=== PATIENT | female | born 1960 | race African-American/Black ===

== ENCOUNTER 2022-01-26 11:41 | Inpatient (IN) | payer OTHER ==
[2022-01-26] MEDS ORDERED: ONDANSETRON *ODT* 4 MG TABLET SL PRN (11:59)
[2022-01-26] MEDS ORDERED: MENTHOL/PHENOL 1 EACH UD MM PRN (11:59)
[2022-01-26] MEDS ORDERED: ACETAMINOPHEN 325 MG TABLET (FP) PO PRN ×2 (11:59)
[2022-01-26] MEDS ORDERED: NICOTINE 10 MG CARTRIDGE (INHALER) IH PRN (11:59)
[2022-01-26] MEDS ORDERED: MAG HYDROX/AL HYDROX/SIMETH 30 ML UNIT-DOSE CUP PO PRN (11:59)
[2022-01-26] MEDS ORDERED: LOPERAMIDE HCL 2 MG CAPSULE PO PRN (11:59)
[2022-01-26] MEDS ORDERED: MAGNESIUM HYDROX 2400MG/30ML ORAL SUSPENSION 30 ML CUP PO PRN (11:59)
[2022-01-26] MEDS ORDERED: BISMUTH SUBSALICYLATE 524 MG/30 ML PO PRN (11:59)
[2022-01-26] MEDS ORDERED: MAGNESIUM CITRATE 300 ML BOTTLE PO PRN (11:59)
[2022-01-26] MEDS ORDERED: LORazepam 1 MG TABLET PO PRN (11:59)
[2022-01-26] MEDS ORDERED: IBUPROFEN 400 MG TABLET (FP) PO PRN (11:59)
[2022-01-26 12:38] VITALS: BMI 18.9
[2022-01-26 15:33] LABS: HEMATOCRIT 39.1 % (32.4-45.2); HEMOGLOBIN 12.7 GM/dL (10.7-15.3); MCH 28.2 pg (25.7-33.7); MCHC 32.5 g/dl (32.0-36.0); MEAN CELL VOLUME 86.7 fl (80-96); MEAN PLT VOLUME 6.9 fl (7.5-11.1); PLATELET COUNT 393 10^3/uL (134-434); RBC 4.51 M/mm3 (3.60-5.2); RDW 16.6 % (11.6-15.6); WHITE BLOOD COUNT 4.1 K/mm3 (4.0-10.0)
[2022-01-26 15:37] LABS: CALCIUM 8.9 mg/dL (8.5-10.1)
[2022-01-26 15:39] LABS: ALBUMIN 3.2 g/dl (3.4-5.0); BLOOD UREA NITROGEN 23.4 mg/dL (7-18)
[2022-01-26 15:41] LABS: CREATININE 1.4 mg/dL (0.55-1.3)
[2022-01-26 15:42] LABS: BILIRUBIN,TOTAL 0.3 mg/dL (0.2-1)
[2022-01-26] MEDS ORDERED: ALBUTEROL SO4 HFA INHALER IH PRN (18:12)
[2022-01-26] MEDS: NICOTINE 7 MG/24 HOURS TOPICAL PATCH TD SCH (21:41)
[2022-01-26] MEDS: hydrOXYzine PAMOATE 25 MG CAPSULE (FP) PO SCH ×3 (21:41→23:31)
[2022-01-26] MEDS: LORazepam 2 MG TABLET PO SCH ×2 (21:41→23:32)
[2022-01-26] MEDS: PRENATAL VITAMINS W/ FOLIC ACID TABLET (FP) PO SCH (21:41)
[2022-01-26] MEDS: SULFAMETHOXAZOLE/TRIMETHOPRIM 800MG/160MG D.S. TABLET PO SCH (23:31)
[2022-01-26] MEDS: THIAMINE HCL 100 MG TABLET (FP) PO SCH (23:31)
[2022-01-26] MEDS: ATORVASTATIN CA 20 MG TABLET (FP) PO SCH (23:31)
[2022-01-26] MEDS: MELATONIN 5 MG TABLETS PO SCH (23:32)
[2022-01-27 00:58] LABS: EPI CELLS >36 /uL (0-25.1); HYALINE CASTS 2 /uL (0-3.1); PH,URINE 5.5 (5.0-8.0); URINE APPEARANCE CLEAR; URINE BACTERIA 496 /uL (0-1359); URINE BILIRUBIN NEGATIVE (NEGATIVE); URINE COLOR YELLOW; URINE GLUCOSE (UA) NEGATIVE (NEGATIVE); URINE KETONE NEGATIVE (NEGATIVE); URINE LEUK ESTERASE TRACE (NEGATIVE); URINE NITRITE NEGATIVE (NEGATIVE); URINE PROTEIN NEGATIVE (NEGATIVE); URINE RBC 7 /uL (0-23.9); URINE WBC 26 /uL (0-25.8)
[2022-01-27] MEDS: LORazepam 2 MG TABLET PO SCH ×4 (06:24→22:57)
[2022-01-27] MEDS: hydrOXYzine PAMOATE 25 MG CAPSULE (FP) PO SCH ×5 (06:25→22:59)
[2022-01-27] MEDS: SULFAMETHOXAZOLE/TRIMETHOPRIM 800MG/160MG D.S. TABLET PO SCH (10:46)
[2022-01-27] MEDS: PRENATAL VITAMINS W/ FOLIC ACID TABLET (FP) PO SCH (10:46)
[2022-01-27] MEDS: NICOTINE 7 MG/24 HOURS TOPICAL PATCH TD SCH (10:49)
[2022-01-27] MEDS: TIOTROPIUM BROMIDE 2.5 MCG (SPIRIVA) RESPIMAT INHALER IH SCH (14:56)
[2022-01-27] MEDS: ATORVASTATIN CA 20 MG TABLET (FP) PO SCH (22:57)
[2022-01-27] MEDS: THIAMINE HCL 100 MG TABLET (FP) PO SCH (22:58)
[2022-01-27] MEDS: MELATONIN 5 MG TABLETS PO SCH (22:59)
[2022-01-28] MEDS: LORazepam 1 MG TABLET PO SCH ×4 (07:22→23:07)
[2022-01-28] MEDS: hydrOXYzine PAMOATE 25 MG CAPSULE (FP) PO SCH ×5 (07:23→23:08)
[2022-01-28] MEDS: PRENATAL VITAMINS W/ FOLIC ACID TABLET (FP) PO SCH (10:40)
[2022-01-28] MEDS: SULFAMETHOXAZOLE/TRIMETHOPRIM 800MG/160MG D.S. TABLET PO SCH (10:40)
[2022-01-28] MEDS: NICOTINE 7 MG/24 HOURS TOPICAL PATCH TD SCH (10:41)
[2022-01-28] MEDS: TIOTROPIUM BROMIDE 2.5 MCG (SPIRIVA) RESPIMAT INHALER IH SCH (11:01)
[2022-01-28] MEDS: ATORVASTATIN CA 20 MG TABLET (FP) PO SCH (23:07)
[2022-01-28] MEDS: MELATONIN 5 MG TABLETS PO SCH (23:08)
[2022-01-28] MEDS: METHOCARBAMOL 500 MG TABLET PO PRN (23:09)
[2022-01-28] MEDS: THIAMINE HCL 100 MG TABLET (FP) PO SCH (23:15)
[2022-01-29] MEDS ORDERED: LORazepam 0.5 MG TABLET PO PRN
[2022-01-29 00:07] LABS: SARS-CoV-2 NAA Not Detected (Not Detected)
[2022-01-29] MEDS: LORazepam 0.5 MG TABLET PO SCH ×2 (06:23→11:48)
[2022-01-29] MEDS: hydrOXYzine PAMOATE 25 MG CAPSULE (FP) PO SCH ×3 (06:24→15:12)
[2022-01-29] MEDS: TIOTROPIUM BROMIDE 2.5 MCG (SPIRIVA) RESPIMAT INHALER IH SCH (11:00)
[2022-01-29] MEDS: SULFAMETHOXAZOLE/TRIMETHOPRIM 800MG/160MG D.S. TABLET PO SCH (11:00)
[2022-01-29] MEDS: PRENATAL VITAMINS W/ FOLIC ACID TABLET (FP) PO SCH (11:00)
[2022-01-29] MEDS: NICOTINE 7 MG/24 HOURS TOPICAL PATCH TD SCH (11:00)
[2022-01-29] MEDS: METHOCARBAMOL 500 MG TABLET PO PRN (11:02)
[2022-01-29 11:55] LABS: CALCIUM 8.4 mg/dL (8.5-10.1)
[2022-01-29 11:56] LABS: BLOOD UREA NITROGEN 13.8 mg/dL (7-18)
[2022-01-29 11:57] LABS: BASO % 0.7 % (0-2.0); EOS % 1.6 % (0-4.5); HEMATOCRIT 36.5 % (32.4-45.2); HEMOGLOBIN 11.5 GM/dL (10.7-15.3); MCH 27.6 pg (25.7-33.7); MCHC 31.6 g/dl (32.0-36.0); MEAN CELL VOLUME 87.5 fl (80-96); MONO % 16.1 % (3.8-10.2); NEUT % 45.6 % (42.8-82.8); PLATELET COUNT 314 10^3/uL (134-434); RBC 4.17 M/mm3 (3.60-5.2); RDW 17.6 % (11.6-15.6); WHITE BLOOD COUNT 3.2 K/mm3 (4.0-10.0)
[2022-01-29 11:59] LABS: CREATININE 0.9 mg/dL (0.55-1.3)
[2022-01-29 17:44] VITALS: BP 109/57; PULSE 90; TEMP 98.4
[2022-01-30] MEDS ORDERED: LORazepam 0.5 MG TABLET PO ONE (05:00)
== END 2022-01-29 17:40 | disposition home or self-care (01) | DRG 774 ==
LOC: YASAS 11:41 → Y3N 20:34
PROVIDERS: ADMIT Allergy & Immunology; ATTEND Allergy & Immunology
PROC: HZ2ZZZZ Detoxification Services for Substance Abuse Treatment (ICD-10-PCS; principal; 2022-01-26)
DX: F10.230 Alcohol dependence with withdrawal, uncomplicated (principal); F14.20 Cocaine dependence, uncomplicated; F17.210 Nicotine dependence, cigarettes, uncomplicated; F19.24 Other psychoactive substance dependence with psychoactive substance-induced mood disorder; F41.9 Anxiety disorder, unspecified; F32.A Depression, unspecified; Z21 Asymptomatic human immunodeficiency virus [HIV] infection status; N17.9 Acute kidney failure, unspecified; N39.0 Urinary tract infection, site not specified; I10 Essential (primary) hypertension; J44.9 Chronic obstructive pulmonary disease, unspecified; A53.0 Latent syphilis, unspecified as early or late; Z86.19 Personal history of other infectious and parasitic diseases; Z88.0 Allergy status to penicillin; Z59.00 Homelessness unspecified; Z56.0 Unemployment, unspecified
CPT/HCPCS: 36415; 80048; 80053; 81003; 85025; 85027; 86593; 86780; 87811; C9803-CS; U0003; U0005

== ENCOUNTER 2022-03-26 09:32 | Inpatient (IN) | payer OTHER ==
[2022-03-26 10:58] VITALS: BMI 18.9
[2022-03-26] MEDS ORDERED: IBUPROFEN 400 MG TABLET (FP) PO PRN (12:16)
[2022-03-26] MEDS ORDERED: LOPERAMIDE HCL 2 MG CAPSULE PO PRN (12:16)
[2022-03-26] MEDS ORDERED: MAG HYDROX/AL HYDROX/SIMETH 30 ML UNIT-DOSE CUP PO PRN (12:16)
[2022-03-26] MEDS ORDERED: MAGNESIUM CITRATE 300 ML BOTTLE PO PRN (12:16)
[2022-03-26] MEDS ORDERED: DICYCLOMINE HCL 10 MG CAPSULE PO PRN (12:16)
[2022-03-26] MEDS ORDERED: METHOCARBAMOL 500 MG TABLET PO PRN (12:16)
[2022-03-26] MEDS ORDERED: MAGNESIUM HYDROX 2400MG/30ML ORAL SUSPENSION 30 ML CUP PO PRN (12:16)
[2022-03-26] MEDS ORDERED: BISMUTH SUBSALICYLATE 524 MG/30 ML PO PRN (12:16)
[2022-03-26] MEDS ORDERED: ONDANSETRON *ODT* 4 MG TABLET SL PRN (12:16)
[2022-03-26] MEDS ORDERED: chlordiazePOXIDE HCL 25 MG CAPSULE PO PRN (12:16)
[2022-03-26] MEDS ORDERED: NICOTINE 10 MG CARTRIDGE (INHALER) IH PRN (12:16)
[2022-03-26] MEDS ORDERED: BENZOCAINE/MENTHOL (CHLORASEPTIC ) LOZENGE MM PRN (12:16)
[2022-03-26] MEDS ORDERED: ACETAMINOPHEN 325 MG TABLET (FP) PO PRN ×2 (12:16)
[2022-03-26] MEDS: hydrOXYzine PAMOATE 25 MG CAPSULE (FP) PO SCH ×3 (14:01→22:26)
[2022-03-26] MEDS ORDERED: ALBUTEROL SO4 HFA INHALER IH PRN (16:10)
[2022-03-26] MEDS: predniSONE 20 MG TABLET (UD) PO SCH (17:38)
[2022-03-26] MEDS: chlordiazePOXIDE HCL 25 MG CAPSULE PO SCH ×2 (17:38→22:26)
[2022-03-26] MEDS: MELATONIN 5 MG TABLETS PO SCH (22:26)
[2022-03-26] MEDS: THIAMINE HCL 100 MG TABLET (FP) PO SCH (22:26)
[2022-03-26] MEDS: CEFPODOXIME PROXETIL 200 MG TABLET [NF] PO SCH (22:26)
[2022-03-27] MEDS: chlordiazePOXIDE HCL 25 MG CAPSULE PO SCH ×4 (06:17→22:55)
[2022-03-27] MEDS: hydrOXYzine PAMOATE 25 MG CAPSULE (FP) PO SCH ×5 (06:18→22:30)
[2022-03-27] MEDS: CEFPODOXIME PROXETIL 200 MG TABLET [NF] PO SCH ×2 (10:16→22:29)
[2022-03-27] MEDS: predniSONE 20 MG TABLET (UD) PO SCH (10:16)
[2022-03-27] MEDS: PRENATAL VITAMINS W/ FOLIC ACID TABLET (FP) PO SCH (10:21)
[2022-03-27 10:32] LABS: HEMATOCRIT 40.9 % (32.4-45.2); HEMOGLOBIN 13.2 GM/dL (10.7-15.3); MCH 27.7 pg (25.7-33.7); MCHC 32.4 g/dl (32.0-36.0); MEAN CELL VOLUME 85.6 fl (80-96); MEAN PLT VOLUME 7.2 fl (7.5-11.1); PLATELET COUNT 362 10^3/uL (134-434); RBC 4.78 M/mm3 (3.60-5.2); RDW 21.2 % (11.6-15.6); WHITE BLOOD COUNT 6.4 K/mm3 (4.0-10.0)
[2022-03-27 11:10] LABS: CALCIUM 9.1 mg/dL (8.5-10.1)
[2022-03-27 11:11] LABS: BLOOD UREA NITROGEN 27.8 mg/dL (7-18)
[2022-03-27 11:14] LABS: CREATININE 0.9 mg/dL (0.55-1.3)
[2022-03-27 11:15] LABS: BILIRUBIN,TOTAL 0.3 mg/dL (0.2-1)
[2022-03-27 11:16] LABS: TOT PROT 6.6 g/dl (6.4-8.2)
[2022-03-27 14:28] LABS: URINE APPEARANCE CLEAR; URINE BILIRUBIN NEGATIVE (NEGATIVE); URINE COLOR YELLOW; URINE GLUCOSE (UA) NEGATIVE (NEGATIVE); URINE KETONE NEGATIVE (NEGATIVE); URINE LEUK ESTERASE NEGATIVE (NEGATIVE); URINE NITRITE NEGATIVE (NEGATIVE); URINE PROTEIN NEGATIVE (NEGATIVE); URINE UROBILINOGEN 0.2 mg/dL (0.2-1.0)
[2022-03-27] MEDS: APIXABAN 5 MG TABLET PO SCH (15:13)
[2022-03-27] MEDS: LOSARTAN POTASSIUM 25 MG TABLET PO SCH (15:14)
[2022-03-27] MEDS: DOXYCYCLINE HYCLATE 100 MG TABLET PO SCH (15:14)
[2022-03-27] MEDS: DARUNAVIR/COB/EMTRI/TENOF (SYMTUZA) TABLET (NF) PO SCH (15:14)
[2022-03-27] MEDS: ASPIRIN 81 MG CHEWABLE TABLETS PO SCH (15:14)
[2022-03-27] MEDS: THIAMINE HCL 100 MG TABLET (FP) PO SCH (22:29)
[2022-03-27] MEDS: MELATONIN 5 MG TABLETS PO SCH (22:32)
[2022-03-28] MEDS: chlordiazePOXIDE HCL 25 MG CAPSULE PO SCH ×4 (06:09→22:59)
[2022-03-28] MEDS: hydrOXYzine PAMOATE 25 MG CAPSULE (FP) PO SCH ×5 (06:09→22:58)
[2022-03-28] MEDS: CEFPODOXIME PROXETIL 200 MG TABLET [NF] PO SCH ×2 (10:27→22:58)
[2022-03-28] MEDS: DARUNAVIR/COB/EMTRI/TENOF (SYMTUZA) TABLET (NF) PO SCH (10:27)
[2022-03-28] MEDS: ASPIRIN 81 MG CHEWABLE TABLETS PO SCH (10:27)
[2022-03-28] MEDS: DOXYCYCLINE HYCLATE 100 MG TABLET PO SCH (10:29)
[2022-03-28] MEDS: PRENATAL VITAMINS W/ FOLIC ACID TABLET (FP) PO SCH (10:29)
[2022-03-28] MEDS: APIXABAN 5 MG TABLET PO SCH (10:29)
[2022-03-28] MEDS: predniSONE 20 MG TABLET (UD) PO SCH (10:29)
[2022-03-28] MEDS: LOSARTAN POTASSIUM 25 MG TABLET PO SCH (10:29)
[2022-03-28 14:12] LABS: SARS-CoV-2 NAA Not Detected (Not Detected)
[2022-03-28] MEDS: THIAMINE HCL 100 MG TABLET (FP) PO SCH (22:58)
[2022-03-28] MEDS: MELATONIN 5 MG TABLETS PO SCH (23:00)
[2022-03-29] MEDS ORDERED: chlordiazePOXIDE HCL 10 MG CAPSULE PO PRN
[2022-03-29] MEDS: chlordiazePOXIDE HCL 10 MG CAPSULE PO SCH ×2 (05:49→10:07)
[2022-03-29] MEDS: hydrOXYzine PAMOATE 25 MG CAPSULE (FP) PO SCH ×2 (05:50→10:07)
[2022-03-29 08:44] VITALS: BP 114/66; PULSE 89; TEMP 97.9
[2022-03-29] MEDS: LOSARTAN POTASSIUM 25 MG TABLET PO SCH (10:04)
[2022-03-29] MEDS: predniSONE 20 MG TABLET (UD) PO SCH (10:04)
[2022-03-29] MEDS: ASPIRIN 81 MG CHEWABLE TABLETS PO SCH (10:04)
[2022-03-29] MEDS: APIXABAN 5 MG TABLET PO SCH (10:05)
[2022-03-29] MEDS: DOXYCYCLINE HYCLATE 100 MG TABLET PO SCH (10:05)
[2022-03-29] MEDS: CEFPODOXIME PROXETIL 200 MG TABLET [NF] PO SCH (10:05)
[2022-03-29] MEDS: DARUNAVIR/COB/EMTRI/TENOF (SYMTUZA) TABLET (NF) PO SCH (10:05)
[2022-03-29] MEDS: PRENATAL VITAMINS W/ FOLIC ACID TABLET (FP) PO SCH (10:06)
[2022-03-30] MEDS ORDERED: chlordiazePOXIDE HCL 10 MG CAPSULE PO SCH (05:00)
[2022-03-31] MEDS ORDERED: chlordiazePOXIDE HCL 10 MG CAPSULE PO ONE (05:00)
== END 2022-03-29 10:10 | disposition left against medical advice (07) | DRG 770 ==
LOC: YASAS 09:32 → Y3N 13:22
PROVIDERS: ADMIT Surgery; ATTEND Surgery
PROC: HZ2ZZZZ Detoxification Services for Substance Abuse Treatment (ICD-10-PCS; principal; 2022-03-26)
DX: F10.230 Alcohol dependence with withdrawal, uncomplicated (principal); F14.20 Cocaine dependence, uncomplicated; F17.210 Nicotine dependence, cigarettes, uncomplicated; F19.280 Other psychoactive substance dependence with psychoactive substance-induced anxiety disorder; F19.24 Other psychoactive substance dependence with psychoactive substance-induced mood disorder; F41.8 Other specified anxiety disorders; F32.A Depression, unspecified; Z21 Asymptomatic human immunodeficiency virus [HIV] infection status; G47.00 Insomnia, unspecified; J44.9 Chronic obstructive pulmonary disease, unspecified; R63.4 Abnormal weight loss; Z68.1 Body mass index [BMI] 19.9 or less, adult; Z87.440 Personal history of urinary (tract) infections; Z87.01 Personal history of pneumonia (recurrent); Z88.0 Allergy status to penicillin
CPT/HCPCS: 36415; 80053; 81003; 85027; 86593; 86780; 87811; C9803-CS; Q0162; U0003; U0005

== ENCOUNTER 2022-05-22 15:39 | Inpatient (IN) | payer OTHER ==
[2022-05-22 17:16] VITALS: BMI 18.6
[2022-05-22] MEDS ORDERED: NICOTINE 10 MG CARTRIDGE (INHALER) IH PRN (17:51)
[2022-05-22] MEDS ORDERED: MAG HYDROX/AL HYDROX/SIMETH 30 ML UNIT-DOSE CUP PO PRN (17:51)
[2022-05-22] MEDS ORDERED: MAGNESIUM HYDROX 2400MG/30ML ORAL SUSPENSION 30 ML CUP PO PRN (17:51)
[2022-05-22] MEDS ORDERED: LOPERAMIDE HCL 2 MG CAPSULE PO PRN (17:51)
[2022-05-22] MEDS ORDERED: P-EPHED 60MG/TRIPROLIDI 2.5MG TABLET PO PRN (17:51)
[2022-05-22] MEDS ORDERED: hydrOXYzine PAMOATE 25 MG CAPSULE (FP) PO PRN (17:51)
[2022-05-22] MEDS ORDERED: MAGNESIUM CITRATE 300 ML BOTTLE PO PRN (17:51)
[2022-05-22] MEDS ORDERED: ALBUTEROL SO4 HFA INHALER IH PRN (17:59)
[2022-05-22] MEDS ORDERED: METHOCARBAMOL 500 MG TABLET PO PRN (18:02)
[2022-05-22] MEDS ORDERED: MELATONIN 5 MG TABLETS PO SCH (22:00)
[2022-05-22] MEDS: APIXABAN 5 MG TABLET PO SCH (23:06)
[2022-05-22] MEDS: BUDESONIDE/FORMETEROL FUMARATE 160/4.5 mcg INHALER IH SCH (23:06)
[2022-05-22] MEDS: THIAMINE HCL 100 MG TABLET (FP) PO SCH (23:07)
[2022-05-23] MEDS: ACETAMINOPHEN 325 MG TABLET (FP) PO PRN ×2 (07:42→22:10)
[2022-05-23] MEDS ORDERED: COLLOIDAL OATMEAL 1 BAR EACH TP PRN (10:17)
[2022-05-23] MEDS: PRENATAL VITAMINS W/ FOLIC ACID TABLET (FP) PO SCH (11:03)
[2022-05-23] MEDS: LOSARTAN POTASSIUM 25 MG TABLET PO SCH (11:04)
[2022-05-23] MEDS: APIXABAN 5 MG TABLET PO SCH (11:04)
[2022-05-23] MEDS: predniSONE 20 MG TABLET (UD) PO SCH (11:04)
[2022-05-23] MEDS: BUDESONIDE/FORMETEROL FUMARATE 160/4.5 mcg INHALER IH SCH ×2 (11:05→22:05)
[2022-05-23] MEDS: NICOTINE 7 MG/24 HOURS TOPICAL PATCH TD SCH (11:05)
[2022-05-23] MEDS: guaiFENesin 200 MG/10 ML 10 ML UNIT-DOSE CUPS PO PRN (11:30)
[2022-05-23] MEDS: TOLNAFTATE 1% CREAM 15 GM TUBE TP SCH ×2 (11:39→22:06)
[2022-05-23] MEDS ORDERED: ARIPiprazole 2 MG TABLET PO ONE (11:52)
[2022-05-23 12:36] LABS: URINE APPEARANCE CLEAR; URINE BILIRUBIN NEGATIVE (NEGATIVE); URINE COLOR YELLOW; URINE GLUCOSE (UA) NEGATIVE (NEGATIVE); URINE KETONE NEGATIVE (NEGATIVE); URINE LEUK ESTERASE NEGATIVE (NEGATIVE); URINE NITRITE NEGATIVE (NEGATIVE); URINE PROTEIN NEGATIVE (NEGATIVE)
[2022-05-23] MEDS: PATIENT'S OWN MEDICATION (NON-FORMULARY) (Darunavir/Cob/Emtri/Tenof Alaf 1 EACH Tablet) PO SCH (14:43)
[2022-05-23] MEDS: APIXABAN 5 MG PO SCH (22:04)
[2022-05-23] MEDS: MELATONIN 5 MG TABLETS PO SCH (22:05)
[2022-05-23] MEDS: THIAMINE HCL 100 MG TABLET (FP) PO SCH (22:06)
[2022-05-24] MEDS: PATIENT'S OWN MEDICATION (NON-FORMULARY) (Darunavir/Cob/Emtri/Tenof Alaf 1 EACH Tablet) PO SCH (07:01)
[2022-05-24] MEDS: ACETAMINOPHEN 325 MG TABLET (FP) PO PRN (07:25)
[2022-05-24] MEDS: APIXABAN 5 MG PO SCH ×2 (10:30→21:21)
[2022-05-24] MEDS: PRENATAL VITAMINS W/ FOLIC ACID TABLET (FP) PO SCH (10:30)
[2022-05-24] MEDS: ARIPiprazole 2 MG TABLET PO SCH (10:31)
[2022-05-24] MEDS: LOSARTAN POTASSIUM 25 MG TABLET PO SCH (10:31)
[2022-05-24] MEDS: predniSONE 20 MG TABLET (UD) PO SCH (10:31)
[2022-05-24] MEDS: BUDESONIDE/FORMETEROL FUMARATE 160/4.5 mcg INHALER IH SCH ×2 (10:32→21:21)
[2022-05-24] MEDS: NICOTINE 7 MG/24 HOURS TOPICAL PATCH TD SCH (10:32)
[2022-05-24] MEDS: TOLNAFTATE 1% CREAM 15 GM TUBE TP SCH ×2 (10:34→21:21)
[2022-05-24 11:50] LABS: HEMOGLOBIN 13.1 GM/dL (10.7-15.3); MCH 28.7 pg (25.7-33.7); MCHC 32.6 g/dl (32.0-36.0); MEAN CELL VOLUME 87.9 fl (80-96); MEAN PLT VOLUME 7.1 fl (7.5-11.1); PLATELET COUNT 361 10^3/uL (134-434); RBC 4.55 M/mm3 (3.60-5.2); WHITE BLOOD COUNT 5.4 K/mm3 (4.0-10.0)
[2022-05-24 12:58] LABS: ALBUMIN 2.9 g/dl (3.4-5.0); CREATININE 0.9 mg/dL (0.55-1.3)
[2022-05-24 12:59] LABS: BLOOD UREA NITROGEN 15.1 mg/dL (7-18)
[2022-05-24 13:00] LABS: BILIRUBIN,TOTAL 0.3 mg/dL (0.2-1); CALCIUM 8.8 mg/dL (8.5-10.1); TOT PROT 6.5 g/dl (6.4-8.2)
[2022-05-24] MEDS: THIAMINE HCL 100 MG TABLET (FP) PO SCH (21:21)
[2022-05-24] MEDS: MELATONIN 5 MG TABLETS PO SCH (21:21)
[2022-05-24] MEDS: guaiFENesin 200 MG/10 ML 10 ML UNIT-DOSE CUPS PO PRN (21:25)
[2022-05-25 06:59] VITALS: TEMP 98.9
[2022-05-25] MEDS: PATIENT'S OWN MEDICATION (NON-FORMULARY) (Darunavir/Cob/Emtri/Tenof Alaf 1 EACH Tablet) PO SCH (07:05)
[2022-05-25 09:15] VITALS: BP 125/70; PULSE 88
[2022-05-25] MEDS: NICOTINE 7 MG/24 HOURS TOPICAL PATCH TD SCH (10:50)
[2022-05-25] MEDS: APIXABAN 5 MG PO SCH (10:51)
[2022-05-25] MEDS: BUDESONIDE/FORMETEROL FUMARATE 160/4.5 mcg INHALER IH SCH (10:52)
[2022-05-25] MEDS: LOSARTAN POTASSIUM 25 MG TABLET PO SCH (10:52)
[2022-05-25] MEDS: ARIPiprazole 2 MG TABLET PO SCH (10:52)
[2022-05-25] MEDS: predniSONE 20 MG TABLET (UD) PO SCH (10:53)
[2022-05-25] MEDS: PRENATAL VITAMINS W/ FOLIC ACID TABLET (FP) PO SCH (10:53)
[2022-05-25] MEDS: TOLNAFTATE 1% CREAM 15 GM TUBE TP SCH (10:54)
[2022-05-25 15:45] LABS: SYPHILIS W/ RPR CONF REACTIVE (NONREACTIVE)
[2022-05-26] MEDS ORDERED: ARIPiprazole 10 MG TABLET PO SCH (10:00)
== END 2022-05-25 18:03 | disposition home or self-care (01) | DRG 772 ==
LOC: YASAS 15:39 → Y5N 17:50
PROVIDERS: ADMIT Allergy & Immunology; ATTEND Psychiatry & Neurology Pain Medicine
PROC: HZ42ZZZ Group Counseling for Substance Abuse Treatment, Cognitive-Behavioral (ICD-10-PCS; principal; 2022-05-22)
DX: F14.20 Cocaine dependence, uncomplicated (principal); F19.250 Other psychoactive substance dependence with psychoactive substance-induced psychotic disorder with delusions; F17.210 Nicotine dependence, cigarettes, uncomplicated; F19.282 Other psychoactive substance dependence with psychoactive substance-induced sleep disorder; F19.24 Other psychoactive substance dependence with psychoactive substance-induced mood disorder; F29 Unspecified psychosis not due to a substance or known physiological condition; F41.9 Anxiety disorder, unspecified; F32.A Depression, unspecified; Z21 Asymptomatic human immunodeficiency virus [HIV] infection status; J44.9 Chronic obstructive pulmonary disease, unspecified; K21.9 Gastro-esophageal reflux disease without esophagitis; Z86.19 Personal history of other infectious and parasitic diseases; Z88.0 Allergy status to penicillin
CPT/HCPCS: 36415; 80053; 81003; 81025; 85027; 86593; 86780; 86803; C9803-CS; U0003; U0005